=== PATIENT | male | born 1970 | race Caucasian/White ===

== ENCOUNTER 2025-06-17 06:09 | Emergency (ER) | payer MEDICAID, SELFPAY ==
[2025-06-17 06:18] VITALS: PULSE 116; RESP 24
[2025-06-17 06:19] VITALS: BP 100/71; PULSE 82; RESP 19; TEMP 36.8; O2SAT 95; BMI 29.5
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
--- NOTE | 2025-06-17 06:36 | EKG_ITS ---
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
[2025-06-17 06:49] LABS: Basophils # (Auto) 0.0 Thou/mm3 (0.0-0.2); Basophils % (Auto) 0 % (0-2.5); Eosinophils # (Auto) 0.0 Thou/mm3 (0.0-0.5); Eosinophils % (Auto) 1 % (0-10); Hematocrit 31.8 % (41.0-53.0); Hemoglobin 11.3 g/dL (13.5-16.0); Immature Granulocytes Auto 0.03 Thou/mm3 (0.00-0.00); Lymphocytes # (Auto) 1.1 Thou/mm3 (1.0-4.8); Lymphocytes % (Auto) 15 % (10-50); Mean Corpuscular HGB Conc 35.5 g/dl (31.0-37.0); Mean Corpuscular Hemoglobin 33.2 pg (25.0-35.0); Mean Corpuscular Volume 94 fL (80-100); Monocytes # (Auto) 0.9 Thou/mm3 (0.0-0.8); Monocytes % (Auto) 12 % (0-12); Neutrophils # (Auto) 5.4 Thou/mm3 (1.8-7.7); Neutrophils % (Auto) 72 % (37-80); Nucleated Red Blood Cell # 0.00 Thou/mm3 (0.00-0.00); Nucleated Red Blood Cell % 0 /100 WBC (0); Platelet Count 242 Thou/mm3 (140-440); RDW Standard Deviation 44.7 fL (35.1-43.9); Red Blood Count 3.40 Miln/mm3 (4.50-5.90); White Blood Count 7.5 Thou/mm3 (3.8-10.6)
[2025-06-17 07:08] LABS: Amphetamine/Methamp Scrn,U Negative (Negative); Barbiturate Screen,Urine Negative (Negative); Benzodiazepines Screen,Urine Positive (Negative); Benzoylecgonine Screen, Ur Negative (Negative); Fentanyl Screen,Urine Negative (Negative); Opiate Screen,Urine Negative (Negative); THC Screen,Urine Negative (Negative)
[2025-06-17 07:08] LABS: Alanine Aminotransferase 42 U/L (10-49); Albumin, Serum 4.1 gm/dL (3.5-5.0); Albumin/Globulin Ratio 1.6 (1.2-2.2); Alcohol, Blood Medical < 3.0 mg/dL (0-10.0); Alkaline Phosphatase 58 U/L (46-116); Anion Gap 12 (7-16); Aspartate Amino Transferase 89 U/L (0-34); BUN/Creatinine Ratio 16 Ratio (12-20); Bilirubin,Total 0.6 mg/dL (0.3-1.2); Blood Urea Nitrogen 22 mg/dL (9-23); Calcium 9.1 mg/dL (8.3-10.6); Calcium (Corrected) 9.1 mg/dL (8.5-10.1); Carbon Dioxide 21.6 mMol/L (20.0-31.0); Chloride 105 mMol/L (98-107); Creatinine (Component) 1.4 mg/dL (0.6-1.3); Estimated Creatinine Clearance 63.0 mL/min (>60); Globulin 2.5 gm/dL (2.3-3.5); Glucose 92 mg/dL (74-106); Lipase 24 U/L (12-53); Magnesium 2.0 mg/dL (1.6-2.6); Osmolality,Calculated 280 (275-295); Potassium 4.5 mMol/L (3.4-5.1); Sodium 139 mMol/L (136-145); Total Protein 6.6 gm/dL (5.7-8.2); Troponin I < 0.020 ng/mL (0.0-0.045); eGFR 60 See Note
[2025-06-17 07:15] LABS: B-Type Natriuretic Peptide 24 pg/mL (0-100)
[2025-06-17 07:37] LABS: Collection Type, Urine Clean Catch
--- NOTE | 2025-06-17 07:37 | PC.NURSE ---
Per Dr Zhou, call [employer] for welfare check on patient mother, RN called and spoke with Luisa to request welfare check.
[2025-06-17 08:04] LABS: Bilirubin,Urine 1+ (Negative); Blood,Urine Trace (Negative); Clarity,Urine Clear (Clear/Hazy); Color,Urine Yellow (Lt Yel-Yel); Culture Indicated,Urine Not Indicated; Glucose, Urine Negative (Negative); Hyaline Casts,Urine 1 /hpf (0-1); Ketones,Urine 1+ (Negative); Leukocyte Esterase,Urine Negative (Negative); Nitrite,Urine Negative (Negative); PH,Urine 5.5 (5.0-7.0); Protein,Urine 1+ (Neg - Trace); RBC,Urine 3 /hpf (0-3); Specific Gravity,Urine 1.031 (1.001-1.035); Squamous Epithelial Cell,Urine 1 /hpf (0-5); Urobilinogen,Urine Negative mg/dL (0.0-1.0); WBC,Urine 3 /hpf (0-5)
--- NOTE | 2025-06-17 11:05 | PC.CC ---
Patient is a 54 year-old male who was BIBA due to being found wandering and appeared to be hallucinating. Per Dr. Zhou, patient made multiple suicide statements to her of wanting to shoot himself. Provider requesting a mental health evaluation. Patient was placed on a [address] Zhou on 06/17/2025 at 0730. BODY AND FENDER MECHANIC APPRENTICE, Akua made face to face contact with patient introduced self, role, and reason for visit. Patient presents as alert and oriented to self and location. BODY AND FENDER MECHANIC APPRENTICE disclosed limits of confidentiality as well. Patient made appropriate eye contact. Patient?s thought process was disorganized, delusional, and made multiple bizarre statements. Patient presented unkempt and disheveled. Patient was a poor historian. Patient was unable to provide information as to why he was brought to the hospital. Patient stated, ?God should not have kept me this long.? BODY AND FENDER MECHANIC APPRENTICE explored with patient the meaning of his statement. Patient stated he has not had sexual intercourse since he was 23 years old was planning on going on a date but the woman was a prostitute. Patient stated there were rats in the room staring at him. 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 At the time of encounter patient is endorsing suicidal ideations but no plan or intention. Patient denied homicidal ideations, visual and auditory hallucinations. Patient reports he has a mental health history of depression but was unable to provide information of who had diagnosed him. BODY AND FENDER MECHANIC APPRENTICE made telephone contact with [facility] staff report patient is not connected. Patient reports he has not slept or eaten for the past three days. BODY AND FENDER MECHANIC APPRENTICE observed patient walking around in his room and drinking orange juice. highway painter Su had concerns of patient?s mother as patient reported to staff that he is the caregiver for his mother and called [employer] to complete a welfare check. [employer] reported the patient?s mother is well. Upon clinical consultation with BODY AND FENDER MECHANIC APPRENTICE, Lyudmila Robbins patient will be placed on a 5150-hold for Danger to Self and Gravely Disabled. Patient?s 179 hold will be credited. BODY AND FENDER MECHANIC APPRENTICE, attempted to provide advisement to patient. Unable to provide advisement as patient is actively hallucinating. Patient?s rights handbook provided to patient. BODY AND FENDER MECHANIC APPRENTICE provided update of 5150-hold to medical staff and discharge plan to [facility]. BODY AND FENDER MECHANIC APPRENTICE to send referral packet to [facility] via [employer].
--- NOTE | 2025-06-17 11:11 | PC.NURSE ---
Patient redirected back to room and dressing placed on right hand due to patient removing IV.
[2025-06-17 13:03] VITALS: BP 108/66; PULSE 74; RESP 18; TEMP 36.6; O2SAT 98
--- NOTE | 2025-06-17 13:23 | PC.NURSE ---
Rn received call from [facility] Deputy Kirby after RN requested welfare check on patient mother, per officer patient mother was ok and APS was also advised by [facility].
[2025-06-17] MEDS: ACETAMINOPHEN 325 MG TABLET 650 MG PO (13:24)
--- NOTE | 2025-06-17 14:37 | PC.CC ---
Akua FARNSWORTH received accepting information. Patient has been accepted to [facility] by Dr. Ganesh Cantrell F. Nurse to Nurse [phone]
--- NOTE | 2025-06-17 15:09 | PC.CC ---
Bedside RN Armand requested a welfare check for patient's mother as patient reports there is no one to care for his mother. HANDBAG FRAMES INSPECTOR made telephone contact with [facility] Jayna who reports they will send a deputy to complete a welfare check.
[2025-06-17 15:32] VITALS: BP 127/84; PULSE 68; RESP 18; TEMP 36.7; O2SAT 97
--- NOTE | 2025-06-17 15:32 | PC.CC ---
PASSENGER ATTENDANT Akua received a call back from [facility] [place] [facility] regarding welfare check he reports this is the second time they go out to the home to check on patient's mother. He reports the patient's mother is fine and no concerns.
== END 2025-06-17 17:03 ==
PROVIDERS: Emergency Provider Emergency Medicine
DX: F23 Brief psychotic disorder (principal); R94.31 Abnormal electrocardiogram [ECG] [EKG]; I10 Essential (primary) hypertension; Z75.1 Person awaiting admission to adequate facility elsewhere; Z87.891 Personal history of nicotine dependence
CPT/HCPCS: 36415; 80053; 80307; 80320; 81001; 83690; 83735; 83880; 84484; 85025; 93005; 96127; 99283; A9270; G0480

== ENCOUNTER 2025-10-29 11:52 | Emergency (ER) | payer MEDICAID, SELFPAY ==
[2025-10-29 12:15] VITALS: BP 115/77; PULSE 68; RESP 19; TEMP 36.4; O2SAT 98; BMI 27.1
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
[2025-10-29] MEDS: KETOROLAC INJ 30 MG/ML VIAL IM (12:35)
[2025-10-29] MEDS: BACITRACIN OINT 15 GM TUBE TOP (12:36)
== END 2025-10-29 14:55 | disposition home or self-care (01) ==
LOC: SERX 15:24
PROVIDERS: Emergency Provider Emergency Medicine
DX: S61.402A Unspecified open wound of left hand, initial encounter (principal); S61.401A Unspecified open wound of right hand, initial encounter; X10.0XXA Contact with hot drinks, initial encounter
CPT/HCPCS: 96372; 99282; J1885; A9270